=== PATIENT | female | born 1950 | race Caucasian/White ===

== ENCOUNTER 2016-11-13 11:26 | Emergency (ER) | payer MEDICARE, OTHER ==
[~2016-11-13 11:26] MED LIST: CHILDREN'S ASPI81 MG PO; ECOTRIN325 M1 PO; EQL FISH OIL 1,1 CA1 PO; LISINOPRIL-HCTZ1 TAB PO; LISINOPRIL10 MG; LISINOPRIL10 MG PO; METOPROLOL TART25 MG; METOPROLOL TART25 MG PO; METOPROLOL TART50 MG PO; PAXIL20 M1 PO; PLAVIX75 MG PO; PRAVACHOL10 MG PO; PRAVACHOL20 MG PO; ZITHROMAX250MG Z-PAK PO; [UNRECOGNIZED DRUG - OTHER]; [UNRECOGNIZED DRUG - OTHER]
[2016-11-13] MEDS ORDERED: LIPITOR40 M1 PO (12:12)
[2016-11-13] MEDS ORDERED: METOPROLOL TART50 M2 PO (12:13)
[2016-11-13] MEDS ORDERED: PRINIVIL20 M1 PO (12:14)
[2016-11-13] MEDS ORDERED: BAYER CHEWABLE81 M2 PO (12:15)
[2016-11-13] MEDS ORDERED: LISINOPRIL-HCT1 EAC2 PO (12:18)
[2016-11-13 12:22] LABS: BASO % 0.3 % (0-2); EOS % 2.9 % (0-7); EOSINOPHIL ABSOLUTE COUNT 0.3 tho/cmm (0.0-0.7); HCT-HEMATOCRIT 39.6 % (34.0-49.0); HGB-HEMOGLOBIN 13.1 gm/dl (12.0-15.5); IMMATURE GRANULOCYTES ABSOLUTE 0.05 tho/cmm (0-0.03); IMMATURE GRANULOCYTES PERCENT 0.6 % (0-0.3); LYMPH % 27.1 % (20-45); LYMPH ABSOLUTE COUNT 2.4 tho/cmm (0.8-4.5); MCHC MEAN CORPUSCULAR HGB CONC 33.1 % (32.0-36.0); MCV (MEAN CELL VOLUME) 87.8 fl (82.0-96.0); MONOCYTE ABSOLUTE COUNT 0.4 tho/cmm (0.0-1.2); NEUTROPHIL ABSOLUTE COUNT 5.6 tho/cmm (1.6-8.0); NEUTROPHIL-AUTOMATED 5.6 tho/cmm (1.6-8.0); NEUTROPHILS % 64.1 % (40-80); PLATELET COUNT 260 tho/cmm (150-450); RED BLOOD COUNT 4.51 mil/cmm (4.00-5.20); RED CELL DISTRIBUTION WIDTH 13.7 % (12.4-16.4); WHITE BLOOD COUNT 8.7 tho/cmm (4.0-10.0)
[2016-11-13 12:38] LABS: ANION GAP 11 mmol/L (0-20); BLOOD UREA NITROGEN 23 mg/dl (6-24); CALCIUM 9.1 mg/dl (8.5-10.5); CARBON DIOXIDE-VENOUS 28 mmol/L (22-32); CHLORIDE 106 mmol/l (96-110); CREATINE PHOSPHOKINASE (CPK) 133 U/L (21-215); CREATININE 1.17 mg/dl (0.50-1.10); GLUCOSE 138 mg/dL (70-110); POTASSIUM 4.1 mmol/L (3.7-5.1); SODIUM 141 mmol/L (135-145); eGFR VALUE FOR BLACK 56 mL/Min
[2016-11-13] MEDS ORDERED: CYCLOBENZAPRINE10 M1 PO (12:55)
[2016-11-13] MEDS ORDERED: NORCO 5-325 TA1 EACH PO (12:55)
== END 2016-11-13 13:03 ==
LOC: EDMED 11:26
PROVIDERS: Emergency Medicine
DX: M79.652 Pain in left thigh (principal); F17.200 Nicotine dependence, unspecified, uncomplicated; Z79.82 Long term (current) use of aspirin